=== PATIENT | male | born 1995 | race Caucasian/White ===

== ENCOUNTER 2020-08-14 13:20 | Emergency (ER) | payer OTHER, SELFPAY ==
--- NOTE | ~2020-08-14 | XR_ITS ---
EXAMINATION: XR wrist RT min 3V DATE: 08/14/2020 13:31 INDICATION: Radial sided right wrist pain and swelling post boarding accident TECHNIQUE: Posteroanterior, ulnar deviation, oblique, and lateral views of the right wrist were obtai geovany. COMPARISON: none FINDINGS: Alignment is normal. Nondisplaced likely mildly comminuted fractures of the distal right radius which extends to involve the articular surface at the lunate fossa. No significant fracture gap or incongr uity at the articular surface. No other fractures identified. 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 IMPRESSION: 1. Nondisplaced intra-articular fracture of the distal right radius. Reviewed, dictated and finalized at location A. SANE
[2020-08-14 13:24] VITALS: BP 155/77; PULSE 91; RESP 20; TEMP 36.5; O2SAT 100
--- NOTE | 2020-08-14 14:22 | ED.UPPEXIN ---
HPI - Extremity Injury (Upper) General Chief Complaint: Extremity Injury, Upper Stated Complaint: R wrist pain Time Seen by Provider: 08/14/20 13:49 Source: patient Mode of arrival: ambulatory Limitations: no limitations History of Present Illness HPI narrative: patient is a 25 year old male right hand dominant who presents for evaluation of right wrist pain. Patient states he fell on while snowboarding at [place]. He states he reached back and tried to break his fall with right wrist. He reports it was swollen and bruised. He thought it was just jammed but he has continued to have dull ache. He denies numbness or tingling. He is able to move all his fingers. He states he wore a helmet so he denies LOC. He denies any other complaints. Related Data Allergies Allergy/AdvReac Type Severity Reaction Status Date / Time ANITHISTAMNES Allergy MAKES HIM Uncoded 11/25/11 13:13 ANGRY Review of Systems Review of Systems: All systems reviewed & are unremarkable except as noted in HPI and below Constitutional: Constitutional: Denies chills and Denies fever(s) PMFSH Past Medical History Medical History (Updated 08/14/20 @ 14:48 by Lucinda Sales MD) Patient denies medical problems Surgical History Surgical History (Updated 08/14/20 @ 14:35 by Lucinda Sales MD) No pertinent past surgical history Social History Social History (Updated 08/14/20 @ 14:35 by Lucinda Sales MD) Smoking status: Never smoker Gender identity (if verbalized by the patient): Male Exam Const: General: no acute distress and alert Orientation/consciousness: patient oriented x3 HENMT: Head: normocephalic and atraumatic Face and sinus: face symmetric Eyes: EOM: EOMs intact bilaterally Resp: Effort & Inspection: normal respiratory effort Neuro: General: patient oriented x3 and moves all extremities Extrem: Other: right wrist with mild swelling, bruising to volar surface, FROM Psych: Mental Status: mental status grossly normal Affect: normal affect Course Consultations Consultation #1: I discussed xray with Dr. Flannery. He states he would be happy to see patient in clinic next week. Patient to have sugar tong splint placed. Date: 08/14/20 Time: 14:35 Vital Signs Vital signs: Vital Signs Temperature 97.7 F 08/14/20 13:24 Pulse Rate 91 08/14/20 13:24 Respiratory Rate 20 08/14/20 13:24 Blood Pressure 155/77 H 08/14/20 13:24 Pulse Oximetry 100 08/14/20 13:24 Temperature 97.7 F 08/14/20 13:24 Pulse Rate 68 08/14/20 14:45 Respiratory Rate 12 08/14/20 14:45 Blood Pressure 155/77 H 08/14/20 13:24 Pulse Oximetry 99 08/14/20 14:45 MDM - Extremity Injury (Upper) Imaging Data Radiologist's impression: ITS Impressions Wrist X-Ray 08/14/20 13:35 IMPRESSION: 1. Nondisplaced intra-articular fracture of the distal right radius. Discharge Plan Discharge Clinical Impression: Distal radius fracture, right Qualifiers: Encounter type: initial encounter Fracture type: closed Fracture morphology: other intra-articular Qualified Code(s): S52.571A - Other intraarticular fracture of lower end of right radius, initial encounter for closed fracture Patient Disposition: Home, Self-Care Condition: Stable Instructions: Wrist Fracture in Adults (ED), How to Use a Sling (ED), Splint Care (ED) Additional Instructions: Call Dr. Flannery's office this week to make an appointment. Continue to rest , ice and elevated . Take tylenol and ibuprofen for your pain. Please read discharge instruction. Follow-up/Referrals: Joshua Germain MD [Primary Care Provider] - Laci Flannery MD [Physician] -
[2020-08-14 14:45] VITALS: PULSE 68; RESP 12; O2SAT 99
== END 2020-08-14 15:04 | disposition home or self-care (01) ==
PROVIDERS: Emergency Provider General Practice; PCP Pediatrics
DX: S52.571A Other intraarticular fracture of lower end of right radius, initial encounter for closed fracture (principal); Y93.23 Activity, snow (alpine) (downhill) skiing, snowboarding, sledding, tobogganing and snow tubing; V00.311A Fall from snowboard, initial encounter
CPT/HCPCS: 29125; 73110; 99284

== ENCOUNTER 2020-08-24 13:28 | Outpatient (CLI) | payer OTHER, SELFPAY ==
--- NOTE | ~2020-08-24 | CT_ITS ---
EXAMINATION: CT wrist RT wo con DATE: 08/24/2020 13:51 INDICATION: Other intra-articular fracture of lower end of right radius, initial encounter. TECHNIQUE: Computed tomography (CT) of the right wrist was performed without intravenous contrast. Au tomated exposure control and iterative reconstruction technique were employed. The dose-length produc t was 279.93 mGy-cm. COMPARISON: Right wrist radiographs 08/14/2020 FINDINGS: There is a nondisplaced comminuted fracture of distal radius with extension of fracture george es to the distal articular surface and distal radioulnar joint. There is no incongruence of the dista l articular surface. Ulnar styloid is intact. There are tiny osteophytes at the distal radioulnar gus nt and first carpometacarpal joint. Cast material is noted. IMPRESSION: 1. Nondisplaced comminuted fracture of distal radius. Reviewed, dictated and finalized at location A. PIPE [employer]ER
== END 2020-08-24 13:29 | disposition home or self-care (01) ==
PROVIDERS: Visit Provider Orthopaedic Surgery
DX: S52.571A Other intraarticular fracture of lower end of right radius, initial encounter for closed fracture (principal)
CPT/HCPCS: 73200

== ENCOUNTER 2022-12-11 10:33 | Emergency (ER) | payer BC, MEDICAID, SELFPAY ==
[2022-12-11 10:46] VITALS: BP 121/81; PULSE 88; RESP 16; TEMP 36.8; O2SAT 100
--- NOTE | 2022-12-11 11:09 | ED.UPPEXIN ---
HPI - Extremity Injury (Upper) General Chief Complaint: Extremity Injury, Upper Stated Complaint: lt thumb injury, tetanus shot Time Seen by Provider: 12/11/22 11:20 Source: patient and RN notes reviewed Mode of arrival: ambulatory Limitations: no limitations History of Present Illness HPI narrative: 27-year-old male presents with concern for a puncture wound to the left 1st digit. He reports this happened today at work. Reports is thin nail punctured his skin. Reports he pulled it out and it was fully intact. He reports he has concern for infection and needs a tetanus shot. He denies any decreased sensation, strength, range of motion in the digit. complaint: injury to: left and hand Related Data Allergies Allergy/AdvReac Type Severity Reaction Status Date / Time ANITHISTAMNES Allergy MAKES HIM Uncoded 12/11/22 11:24 ANGRY Review of Systems Review of Systems: CONSTITUTIONAL: Denies malaise, chills, sweats, or fever. SKIN: Denies rash or itching, open skin, laceration, abrasion, redness, warmth, swelling. MUSCULOSKELETAL: Reports puncture wound to the 1st digit of the left hand NEUROLOGIC: Denies numbness, weakness All systems reviewed & are unremarkable except as noted in HPI and below PMFSH Past Medical History Medical History Patient denies medical problems Surgical History Surgical History No pertinent past surgical history Social History Social History Smoking status: Never smoker Gender identity (if verbalized by the patient): Male Comments At time of signature, agree with nursing past medical, surgical, social and family history. There is no relevant family history pertinent to the presenting complaint Exam Narrative: GENERAL: Well-appearing, well-nourished, and in no acute distress. HEAD: Normocephalic EYES: PERRLA, conjunctivae clear NECK: Supple. CHEST: Speaks in full sentences. No respiratory distress. HEART: Regular rate and rhythm. Normal and equal peripheral pulses. EXTREMITIES: 1st digit of left hand has grossly normal strength and sensation. 5/5 strength with digit flexion, extension. Range of motion normal. No clubbing, cyanosis, or edema noted. No tenderness. Normal digital cascade with flexion of fingers, median, ulnar and radial nerve intact. Normal sensation of each side of finger. No scissoring. Normal thumb opposition. Good capillary refill and radial pulse. Distal capillary refill less than 3 seconds. SKIN: Warn, dry, intact, pink. Very small puncture wound noted to the lateral edge of the digit without surrounding erythema, edema, induration NEURO: Alert and oriented x3. PSYCH: Normal mood and affect Course Course Emergency Course: Patient is aware of diagnosis, understands and agrees to treatment plan. Anticipatory guidance given. Patient agrees to follow-up as directed and is aware of reasons to seek care at the emergency department. Portions of this record may have been created with voice recognition software Level of Care: Express Care Visit Vital Signs Vital signs: Vital Signs Temperature 98.2 F 12/11/22 10:46 Pulse Rate 88 12/11/22 10:46 Respiratory Rate 16 12/11/22 10:46 Blood Pressure 121/81 12/11/22 10:46 Pulse Oximetry 100 12/11/22 10:46 Temperature 98.2 F 12/11/22 10:46 Pulse Rate 88 12/11/22 10:46 Respiratory Rate 16 12/11/22 10:46 Blood Pressure 121/81 12/11/22 10:46 Pulse Oximetry 100 12/11/22 10:46 Reviewed. MDM - Extremity Injury (Upper) MDM Narrative Medical decision making narrative: Exam findings show no acute concerns or changes; patient is non-toxic appearing and is in no distress. Patient is appropriate for outpatient treatment and follow-up. Critical Care Time Critical Care Time Critical Care Time: No Discharge Plan D
[2022-12-11] MEDS: TETANUS,DIPHTHERIA,AC PERTUSSIS ADULT (0.5 ML) BOOSTRIX IM (11:12)
== END 2022-12-11 11:38 | disposition home or self-care (01) ==
PROVIDERS: Emergency Provider Nurse Practitioner
DX: S61.032A Puncture wound without foreign body of left thumb without damage to nail, initial encounter (principal); W45.0XXA Nail entering through skin, initial encounter; Z23 Encounter for immunization
CPT/HCPCS: 90471; 90715; 99213; G0463